=== PATIENT | male | born 1960 | race Caucasian/White ===

== ENCOUNTER 2016-07-04 23:00 | Emergency (ER) | payer BC, OTHER ==
[2016-07-04 23:15] VITALS: RESP 22; TEMP 97.4
[2016-07-04] MEDS ORDERED: ONDANSETRON 4 MG/2 ML VIAL IVP ONE (23:19)
[2016-07-04] MEDS ORDERED: Sodium Chloride 0.9% 1,000 ML PRIMARY IV ONE (23:19)
[2016-07-04 23:24] LABS: BASOPHILS # (AUTO) 0.09 10*3/UL; BASOPHILS % (AUTO) 0.9 % (0-1); EOSINOPHILS # (AUTO) 0.12 10*3/UL; EOSINOPHILS % (AUTO) 1.2 % (0-8); LYMPHOCYTES # (AUTO) 2.19 10*3/uL; MEAN CORPUSCULAR HEMOGLOBIN 30.6 PG (27-31); MEAN CORPUSCULAR HGB CONC 32.7 g/dL (33-37); MEAN CORPUSCULAR VOLUME 93.5 FL (80-90); MONOCYTES # (AUTO) 0.94 10*3/UL (0.3-0.8); MONOCYTES % (AUTO) 9.8 % (5-15); NEUTROPHILS # (AUTO) 6.28 10*3/UL; NEUTROPHILS % (AUTO) 65.2 % (50-80); PLATELET MORPHOLOGY COMMENT NORMAL MORPHOLOGY (NORM); RBC MORPHOLOGY COMMENT NORMAL MORPHOLOGY (NORM); RED BLOOD COUNT 5.88 10^6/uL (4.70-6.10); WBC MORPHOLOGY COMMENT NORMAL MORPHOLOGY (NORM)
--- NOTE | 2016-07-04 23:25 | PDOC ---
Gen Adult / Medical Screen HPI - General Chief Complaint: General Medical Stated Complaint: Light Headed/Short of Breath Date Seen by Provider: 07/04/16 Time Seen by Provider: 23:20 Source: POSITIVE: Patient Exam Limitations: POSITIVE: No limitations Nurse's Notes Reviewed & Considered: Yes - Indicators Temperature Between 95 and 101 Degrees: Yes Respirations Between 12 and 20: No (22) Blood Pressure Between 100-165 (sys) and 60-100 (waters): No (169/119) Pulse Range Between 60-105 (100 for age > 60 years): Yes Severe Pain (Greater than 5/10 Reported): No Chest or Abdominal Pain: No Inability to Walk: No Pt Reports Active High Risk Cond. (TB/Hepatitis/HIV/Chemo): No Abnormal Mental Status: No - History of Present Illness Initial Comments: Patient comes in today with chief complaint of dizziness. Patient was at work at the [employer] when he developed lightheadedness, nausea, diaphoresis. He was brought here for evaluation by the medics at the [facility]. His blood sugar at the [facility] was 61. Here at the emergency room it is 124. Patient states he's been under increased stress with his mother undergoing open heart surgery, his girlfriends daughter having a miscarriage, and having to travel to [facility] to take care of family member. He had supper before he left for work [facility], [place]. He ate approximately 1500 hrs. which is his normal time. He denies any headache but feels as though a band is around his head. No blurry vision, no tinnitus. Denies any chest pain or shortness of breath. He did have an episode of vomiting earlier but presently no nausea. Denies any body aches or joint aches. He does have peripheral edema. Denies any rashes. Denies anxiety. Body Location Affected: REPORTS: Head Timing: REPORTS: Abrupt Duration: Unknown Similar Symptoms Previously: No Recent Care Received: REPORTS: Denies Any Prior Injuries Related to Current Complaint?: No - Patient Home Medications Home Medications: Home Medications Lisinopril/Hydrochlorothiazide [Lisinopril-Hctz 20-25 Mg Tab] 1 tab PO QD #30 tab 06/11/16 Metformin HCl 1 tab ORAL BID #60 tab 06/11/16 Simvastatin 1 tab ORAL QD #30 tab 06/11/16 Venlafaxine HCl [Venlafaxine Hcl Er] 1 tab ORAL QD #30 tab 06/12/16 - Patient Allergies Allergies/Adverse Reactions: Allergies Allergy/AdvReac Type Severity Reaction Status Date / Time No Known Allergies Allergy Verified 07/04/16 23:07 Past Medical History - heen HEENT History: Denies History Additional HEENT History: IMPACTED CERUMEN Cardiovascular History: Hypertension, Hyperlipidemia Respiratory History: Sleep Apnea Additional Respiratory History: PT DOESN'T USE A CPAP Gastrointestinal History: Gallbladder Disease Genitourinary History: Denies History Endocrine History: Type 2 Diabetes (oral) Additional Endocrine History: INSULIN RESISTANCE PT DOESN'T TAKE MEDICATION PRISCRIBED Musculoskeletal History: Gout, Back Pain, Other (please comment) Additional Musculoskeletal History: DERMATITIS/ FOLICULITIS Neurological History: Denies History Blood Disorders: Denies History Psychiatric History: Denies History History of Sexually Transmitted Diseases: No Cancer History: Denies History In Past Year Been Physically Harmed or Verbally Threatened: No History of MDRO: No Tobacco Use: Never Smoker Alcohol Use: Occasionally Substance Use Type: None Previous Surgical History: Yes Type / Date of Surgery: BACK SX/ LEFT BICEPS TENDON REPAIR WITH HARDWARE/ RIGHT ANKLE SX X 5 Anesthesia Reactions: No Malignant Hyperthermia: No Significant Family History: Heart disease Additional Family History: BROTHER HEART ROS - Limitations ROS Limitations: No Limitations Constitution: REPORTS: Diaphoresis Cardiovascular: REPORTS: Denies Cardiac Symptoms Respiratory: REPORTS: Denies Resp Symptoms Neurological: REPORTS: Dizziness Gastrointestinal: REPORTS: Vomitting Endocrine: REPORTS: Denies Symptoms Musculoskeletal: REPORTS: Denies MS Symptoms Genitourinary: REPORTS: Denies Symptoms Eyes: REPORTS: Denies Symptoms ENT: REPORTS: Denies Symptoms Skin: REPORTS: Denies Skin Symptoms Lympathic: REPORTS: Denies Lympathic Symptoms Immunologic: POSITIVE: Denies Symptoms Psychiatric: POSITIVE: Denies Psych Symptoms Gen Adult/Medical Screen Exam - General Appearance General Appearance: POSITIVE: Alert, Cooperative, No Acute Distress, No Evidence of Trauma - HEENT HEENT: POSITIVE: Head Inspection Nml, Eyes Inspection Nml, Ears Inspection Nml, Nose Inspection Nml, PERRL, EOMI - Pupils Pupil Size: 5 mm: Bilateral - Neck Neck: POSITIVE: Normal Inspection - Respiratory Respiratory: POSITIVE: No Respiratory Distress, Breath Sounds Normal, Chest Non- Tender - Cardiovascular Cardiovascular: POSITIVE: Regular Rate & Rhythm, No Murmur, No Gallop, PMI Normal - Abdomen Abdomen: Soft: (All Quadrants), Normal Bowel Sounds: (All Quadrants), Denies Tenderness: (All Quadrants) - Back Back: POSITIVE: Normal Inspection - Neurological / Psychological Mental Status: POSITIVE: Mood Normal, Affect Normal Orientation: POSITIVE: Oriented x 3 - Skin Skin: POSITIVE: Normal Color, Warm, Dry, No Rash - Extremities Extremity: Non-Tender: (All Extremities), Normal ROM: (All Extremities), Normal Inspection: (All Extremities), Pelvis Stable: (All Extremities) Procedures - Laceration/Wound Repair Did patient have a laceration repair: No Gen Adlt/Medical Scrn Progress - Results Reviewed by me Xrays/CTs/US Reviewed by me: Yes Discussed with Radiologist: Yes Lab Results Reviewed: Yes Lab Results:: Laboratory Results 07/04/16 07/05/16 Range/Units 23:24 00:18 WBC 9.64 (4.8-10.8) 10^3/uL RBC 5.88 (4.70-6.10) 10^6/uL Hgb 18.0 (14.0-18.0) g/dL Hct 55.0 H (42.0-52.0) % MCV 93.5 H (80-90) FL MCH 30.6 (27-31) PG MCHC 32.7 L (33-37) g/dL RDW Std Deviation 49.3 (39-50) fL RDW Coeff of Ramez 14.7 H (11.5-14.5) % Plt Count 152 (140-350) 10*3/uL MPV 11.0 (7.4-12.2) FL Immature Gran % (Auto) 0.2 (0-5) % Neut % (Auto) 65.2 (50-80) % Lymph % (Auto) 22.7 (10-50) % [place] % (Auto) 9.8 (5-15) % Eos % (Auto) 1.2 (0-8) % Baso % (Auto) 0.9 (0-1) % Immature Gran # (Auto) 0.02 10*3/UL Neut # (Auto) 6.28 10*3/UL Lymph # (Auto) 2.19 10*3/uL [place]er # (Auto) 0.94 H (0.3-0.8) 10*3/UL Eos # (Auto) 0.12 10*3/UL Baso # (Auto) 0.09 10*3/UL WBC Morphology Comment Normal morphology (NORM) Plt Morphology Comment Normal morphology (NORM) RBC Morph Comment Normal morphology (NORM) Sodium 137 (135-145) meq/L Potassium 3.8 (3.8-5.2) meq/L Chloride 101 (98-112) meq/L Carbon Dioxide 27 (23-33) meq/L Anion Gap 9 (5-20) BUN 14 (7-22) mg/dL Creatinine 0.7 (0.70-1.50) mg/dL Estimated GFR > 60 (>60 ml/min/1.73m(2)) BUN/Creatinine Ratio 20.00 (6-20) Glucose 137 H (78-110) mg/dL Mean Blood Glucose 141.439 mg/dL Hemoglobin A1c 6.83 H (4.2-6.0) % Calculated Osmolality 286.0 (267-292) mOsm/kg Calcium 8.7 (8.7-10.7) mg/dL Magnesium 1.8 (1.6-2.4) mg/dL Total Bilirubin 1.1 (0.3-1.2) mg/dL AST 76 H (21-57) IU/L ALT 81 H (21-72) IU/L Alkaline Phosphatase 81 (38-126) IU/L NT-Pro-B Natriuret Pep 178 H (0-125) PG/ML Total Protein 7.7 (6.1-8.0) g/dL Albumin 3.9 (3.5-4.8) g/dL Globulin 3.8 (2.50-4.10) g/dL Albumin/Globulin Ratio 1.00 L (1.3-2.0) mg/g TSH 2.58 (0.2700-4.2000) uIU/mL Free T4 1.02 (0.93-1.71) ng/dL Ur Collection Type Clean catch urine Urine Color Yellow Urine Clarity Clear (CLEAR) Urine pH 5.5 (5.0-8.5) Ur Specific [place] 1.015 (1.005-1.030) Urine Protein Negative (NEG) mg/dl Urine Glucose (UA) Negative (NEG) mg/dL Urine Ketones Negative (NEG) Urine Occult Blood Negative (NEG) Urine Nitrate Negative (NEG) Urine Bilirubin Negative (NEG) Urine Urobilinogen 0.2 (0.2) EU/dL Ur Leukocyte Esterase Negative (NEG) Ur Culture Indicated? Culture not set EKG Interpreted/Reviewed By Me:: Yes EKG Interpretation:: POSITIVE: Normal Sinus Rhythm, Normal Rate, Normal QRS, Normal ST/T - Patient's Progress Pain Medication Addressed: POSITIVE: Not Applicable School/Work Release Addressed: POSITIVE: Yes Re-Examine Time: 00:32 Status: POSITIVE: Improved MDM / ED Course: Patient was evaluated, IV started, blood drawn and sent to the lab for studies, radiographic examinations obtained. Patient received a bolus of 250 mL of normal saline, Zofran for nausea. His symptoms did improve. Findings: CBC shows hematocrit slightly elevated at 55. Comprehensive metabolic panel shows creatinine and BUN to be normal. CT scan of his head shows no acute intracranial abnormalities. EKG was obtained interpreted by me showing a normal sinus rhythm. Assessment: Dizziness which has improved. Differential diagnosis includes: #1 hypoglycemic episode, #2 mild dehydration, #3 vertigo. Plan: Discharge home. 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 He is to follow-up with Dr. Toledo calling Thursday for an appointment. - Consult Counseled: POSITIVE: Patient, RE: Lab Results, RE: Radiology Results, RE: DX, RE : Need for F/U Patient Care Time - Estimated PCT Patient Care Time (In Minutes): 45 Vital Signs - Recent Vital Signs Vital Signs: Vital Signs (Last 8 hours) Temp Pulse Resp BP Pulse Ox 07/04/16 23:07 97.4 F 79 22 169/119 92 - VS Reviewed Vital Signs Reviewed: Yes Discharge Clinical Impression: Dehydration, Dizziness Discharge Disposition: Discharged to Home Condition: Stable Patient Instructions Given at Discharge: Syncope (ED)
[2016-07-04 23:33] LABS: BLOOD UREA NITROGEN 14 mg/dL (7-22); CALCIUM 8.7 mg/dL (8.7-10.7); EST GLOMERULAR FILTRATION > 60 (>60 ml/min/1.73m(2)); SERUM ALBUMIN 3.9 g/dL (3.5-4.8)
[2016-07-04 23:35] LABS: MAGNESIUM 1.8 mg/dL (1.6-2.4)
[2016-07-04 23:38] LABS: HEMOGLOBIN A1C 6.83 % (4.2-6.0)
--- NOTE | 2016-07-05 00:01 | EKG ---
[address] [address] Measurements Intervals [place] Rate: 80 P: -7 AK: 170 QRS: -2 QRSD: 88 T: 17 QT: 382 QTc: 418 Interpretive Statements SINUS RHYTHM INTERPRETATION BASED ON A DEFAULT AGE OF 40 YEARS Compared to ECG 09/05/2015 13:56:41 No significant changes Electronically Signed On 07-07-16 12:16:57 MDT by Nima Martinez MD [email or web address]
[2016-07-05 00:10] LABS: FREE T4 (FREE THYROXINE) 1.02 ng/dL (0.93-1.71)
[2016-07-05 00:17] LABS: BILIRUBIN,URINE NEGATIVE (NEG); COLOR,URINE YELLOW; GLUCOSE, URINE (UA) NEGATIVE (NEG); NITRATE,URINE NEGATIVE (NEG); OCCULT BLOOD,URINE NEGATIVE (NEG); PH,URINE 5.5 (5.0-8.5); PROTEIN,URINE NEGATIVE (NEG); UROBILINOGEN,URINE 0.2 EU/dL (0.2)
[2016-07-05 00:18] LABS: CLARITY,URINE CLEAR (CLEAR); URINE SAMPLE TYPE CLEAN CATCH URINE
[2016-07-05] MEDS ORDERED: Sodium Chloride 0.9% 1,000 ML ONE (05:52)
== END 2016-07-05 00:42 | disposition home or self-care (01) ==
LOC: ER 23:00
DX: E86.0 Dehydration (principal); R11.2 Nausea with vomiting, unspecified; E11.9 Type 2 diabetes mellitus without complications; R42 Dizziness and giddiness
CPT/HCPCS: 70450; 80053; 81003; 82948; 83036; 83735; 83880; 84439; 84443; 85025; 93005; 93010; 99283; J7030

== ENCOUNTER → 2016-07-14 | Outpatient (CLI) | payer BC, OTHER | LOC: US 12:58 | PROVIDERS: ATTEND Family Medicine | DX: R06.00 Dyspnea, unspecified (principal); R55 Syncope and collapse; R79.89 Other specified abnormal findings of blood chemistry; R60.0 Localized edema; I10 Essential (primary) hypertension; I51.7 Cardiomegaly | CPT/HCPCS: 93306 ==